=== PATIENT | female | born 1970 | race Caucasian/White ===

== ENCOUNTER 2017-06-20 16:16 | Emergency (ER) | payer BC ==
[~2017-06-20] VITALS: Ht 160 cm; Wt 104.0 kg
[~2017-06-20 16:16] MED LIST: AMOXICILLIN500 MG PO; ASPIRIN LOW DOS81 M1 PO; ASPIRIN81 MG PO; AVELOX400 MG OR; CELEXA20 MG PO; CIPROFLOXACN500 MG PO; FIORICE1 PO; FIORICET PO; FOLIC ACID1 MG OR; IMITREX50 M1 PO; KEFLEX500 M1 PO; LEXAPRO20 MG PO; LIPITOR10 MG OR; MAXALT10 MG PO; METRONIDAZOL500 MG PO; NEURONTIN300 MG PO; NO CURRENT MEDS; NO HOME MEDS; ONDANSETRON4 MG PO; PANCOF EXP OR; PERCOCET 5/325M1 TAB PO; PRAVASTATIN10 MG PO; PRENATAL1 TAB OR; ROBITUSSIN AC10 ML PO; TB MEDS; ULTRAM50 M1 PO; ULTRAM50 MG OR; ZANAFLEX2 MG PO; ZPAK OR; [UNRECOGNIZED DRUG - OTHER] OR
[2017-06-20] MEDS ORDERED: PERCOCET 5/325M1 TAB PO (16:26)
[2017-06-20 16:35] VITALS: BP 115/77
[2017-06-20] MEDS ORDERED: REQUIP XL2 MG PO (16:39)
[2017-06-20] MEDS ORDERED: VITAMIN D5000 UNIT PO (16:40)
[2017-06-20] MEDS ORDERED: PREVACID15 M1 PO (16:40)
[2017-06-20] MEDS ORDERED: NAPROSYN500 MG PO (17:11)
== END 2017-06-20 17:25 | disposition home or self-care (01) | DRG 563 ==
LOC: ED 16:16
PROC: 2W3DX1Z Immobilization of Left Lower Arm using Splint (ICD-10-PCS; principal; 2017-06-20)
DX: S63.502A Unspecified sprain of left wrist, initial encounter (principal); M25.532 Pain in left wrist; M77.9 Enthesopathy, unspecified

== ENCOUNTER 2018-12-12 17:05 | Emergency (ER) | payer OTHER ==
[~2018-12-12] VITALS: Ht 160 cm; Wt 110.0 kg
[~2018-12-12 17:05] MED LIST changes: +CELEBREX200 M1 PO; +CYMBALTA30 MG PO; +FOLIC ACID1 M1 PO; +LYRICA100 MG PO; +MULTIVITAMI9 PO; +NAPROSYN500 MG PO; +PHENTERMINE37.5 MG PO; +PREVACID15 M1 PO; +PROTONIX40 M2 PO; +REQUIP XL2 MG PO; +ROBAXIN-750750 MG PO; +ROSUVASTATIN CA40 MG PO; +VITAMIN D5000 UNIT PO
[2018-12-12 18:02] LABS: URINE BILIRUBIN - DIPSTICK NEGATIVE (NEGATIVE); URINE BLOOD DIPSTICK SMALL (NEGATIVE); URINE COLOR YELLOW; URINE GLUCOSE - DIPSTICK NEGATIVE (NEGATIVE); URINE KETONE NEGATIVE (NEGATIVE); URINE LEUK ESTERASE NEGATIVE (NEGATIVE); URINE NITRITE - DIPSTICK NEGATIVE (Negative); URINE PH 5.5 (4.5-8.0); URINE PROTEIN - DIPSTICK NEGATIVE (NEG-TRACE); URINE SPECIFIC GRAVITY >=1.030; URINE UROBILINOGEN - DIPSTICK 0.2 E.U./dL (0.2)
[2018-12-12 18:08] LABS: IMMATURE GRANULOCYTES 0.3 % (0.0-5.0); MEAN CELL VOLUME 89.9 fL CALC (80.0-100.0); MEAN CORPUSCULAR HGB 28.6 pG CALC (26.0-32.0); MEAN CORPUSCULAR HGB CONC 31.8 g/L CALC (32.0-36.0); NEUT# 6.68 thou/uL (2.00-7.15); RED BLOOD COUNT 4.93 mill/uL (4.20-5.60); RED CELL DISTRI WIDTH 13.9 % (11.5-15.5)
[2018-12-12] MEDS ORDERED: ESCITALOPRAM OX10 MG PO (18:27)
[2018-12-12 18:32] LABS: ALKALINE PHOSPHATASE 101 u/l (38-126); AMYLASE 30 u/l (30-110); ANION GAP 15 (6-22 (CALC)); BILIRUBIN, TOTAL 0.8 mg/dL (0.0-1.4); BUN 11 mg/dL (7-17); BUN/CREATININE RATIO 15 (12-20 (CALC)); CARBON DIOXIDE 26 mmol/l (22-30); CHLORIDE 106 mmol/l (95-108); CREATININE 0.7 mg/dL (0.5-1.0); GFR > 60 ML/MIN (>=60 (CALC)); GFR FOR AFR.AMER. > 60 ML/MIN (>=60 (CALC)); HEMATOCRIT 44.3 % (37.0-47.0); HEMOGLOBIN 14.1 g/dl (12.0-16.0); LIPASE 107 u/l (23-300); POTASSIUM 4.4 mmol/l (3.5-5.1); SGOT/AST 21 u/l (14-36); SODIUM 143 mmol/l (137-146)
[2018-12-12 18:36] LABS: URINE SQUAMOUS EPITHELIAL CELL FEW EPI/hpf (0-FEW)
[2018-12-12 18:37] LABS: ALBUMIN 4.2 g/dL (3.2-5.0); TOTAL PROTEIN 7.3 g/dL (6.3-8.2)
[2018-12-12] MEDS ORDERED: TAMSULOSIN0.4 MG PO (21:14)
[2018-12-12] MEDS ORDERED: LORTAB 1010 MG PO (21:14)
[2018-12-12 21:30] VITALS: BP 153/84
== END 2018-12-12 21:30 | disposition home or self-care (01) | DRG 694 ==
LOC: ED 17:05
PROVIDERS: Family Medicine
DX: N20.9 Urinary calculus, unspecified (principal); F17.200 Nicotine dependence, unspecified, uncomplicated
CPT/HCPCS: Q9967

== ENCOUNTER 2019-05-07 20:11 | Emergency (ER) | payer OTHER ==
[~2019-05-07] VITALS: Ht 160 cm; Wt 107.0 kg
[~2019-05-07 20:11] MED LIST changes: +ESCITALOPRAM OX10 MG PO; +LORTAB 1010 MG PO; +TAMSULOSIN0.4 MG PO
[2019-05-07] MEDS ORDERED: MOTRIN400 MG PO (20:21)
[2019-05-07] MEDS ORDERED: PERCOCET 5/325M1 TAB PO (20:21)
[2019-05-07 21:21] VITALS: BP 115/76
== END 2019-05-07 21:26 | disposition home or self-care (01) | DRG 552 ==
LOC: ED 20:11
DX: M54.6 Pain in thoracic spine (principal); M25.511 Pain in right shoulder; R06.02 Shortness of breath

== ENCOUNTER 2020-02-20 07:24 | Day surgery (SDC) | payer OTHER ==
[~2020-02-20 07:24] MED LIST changes: +CELEBREX100 M1 PO; +EXCEDRIN MIGRAINE PO; +HYDROCHLOROT25 MG PO; +MOTRIN400 MG PO; +SUMATRIPTAN25 MG PO; +VITAMIN D35000 UNI1 PO; +WELLBUTRIN XL150 MG PO
[2020-02-20 10:53] VITALS: BP 112/78
== END 2020-02-20 11:05 | disposition home or self-care (01) | DRG 951 ==
LOC: ENDO 07:24 → ORM 08:10 → ENDO 08:10 → ORM 08:45 → ENDO 09:30
PROVIDERS: ATTEND Surgery
PROC: 0DJD8ZZ Inspection of Lower Intestinal Tract, Via Natural or Artificial Opening Endoscopic (ICD-10-PCS; principal; 2020-02-20)
DX: Z12.11 Encounter for screening for malignant neoplasm of colon (principal); F17.210 Nicotine dependence, cigarettes, uncomplicated; Z86.010 Personal history of colon polyps; Z80.0 Family history of malignant neoplasm of digestive organs; Z11.59 Encounter for screening for other viral diseases

== ENCOUNTER 2021-09-22 09:05 | Observation (INO) | payer SELFPAY ==
[~2021-09-22] VITALS: Ht 152.4 cm; Wt 117.0 kg
[~2021-09-22 09:05] MED LIST changes: +DECADRON PO; +ZITHROMAX Z-PA250 MG PO
--- NOTE | 2021-09-22 09:10 | NUR ---
PATIENT SPO2 95% ON ROOM AIR, HEART RATE 72 AND RR 20.
--- NOTE | 2021-09-22 09:30 | NUR ---
PT ESCORTED TO ROOM 14 FOR EVALUATION OF SOB
[2021-09-22] MEDS ORDERED: ZPAK PO (09:45)
[2021-09-22] MEDS ORDERED: DEXAMETHASON0.5 MG PO (09:45)
[2021-09-22 10:53] LABS: HEMATOCRIT 44.1 % (37.0-47.0); HEMOGLOBIN 13.5 g/dl (12.0-16.0); IMMATURE GRANULOCYTES 0.3 % (0.0-5.0); MEAN CELL VOLUME 91.5 fL CALC (80.0-100.0); MEAN CORPUSCULAR HGB CONC 30.6 g/dL CAL (32.0-36.0); NEUT# 4.35 thou/uL (2.00-7.15); RED BLOOD COUNT 4.82 mill/uL (4.20-5.60); RED CELL DISTRI WIDTH 14.7 % (11.5-15.5)
[2021-09-22 11:25] LABS: ALBUMIN 3.8 g/dL (3.2-5.0); ALKALINE PHOSPHATASE 96 u/l (38-126); ANION GAP 10 (6-22 (CALC)); BILIRUBIN, TOTAL 0.5 mg/dL (0.0-1.4); BUN 12 mg/dL (7-17); BUN/CREATININE RATIO 14 (12-20 (CALC)); CARBON DIOXIDE 29 mmol/l (22-30); CHLORIDE 107 mmol/l (95-108); CREATININE 0.8 mg/dL (0.5-1.0); GFR > 60 ML/MIN (>=60 (CALC)); GFR FOR AFR.AMER. > 60 ML/MIN (>=60 (CALC)); POTASSIUM 3.8 mmol/l (3.5-5.1); SGOT/AST 31 u/l (14-36); SODIUM 142 mmol/l (137-146); TOTAL PROTEIN 7.6 g/dL (6.3-8.2)
[2021-09-22 11:37] LABS: MYOGLOBIN 65 ng/mL (0 - 62)
[2021-09-22 12:09] LABS: URINE BILIRUBIN - DIPSTICK NEGATIVE (NEGATIVE); URINE BLOOD DIPSTICK MODERATE (NEGATIVE); URINE COLOR YELLOW; URINE GLUCOSE - DIPSTICK NEGATIVE (NEGATIVE); URINE KETONE NEGATIVE (NEGATIVE); URINE LEUK ESTERASE NEGATIVE (NEGATIVE); URINE NITRITE - DIPSTICK NEGATIVE (Negative); URINE PH 5.5 (4.5-8.0); URINE PROTEIN - DIPSTICK NEGATIVE (NEG-TRACE); URINE SPECIFIC GRAVITY 1.025; URINE UROBILINOGEN - DIPSTICK 0.2 E.U./dL (0.2)
[2021-09-22 12:13] LABS: URINE SQUAMOUS EPITHELIAL CELL FEW EPI/hpf (0-FEW)
--- NOTE | 2021-09-22 15:52 | NUR ---
PATIENT EATING A CARDIAC TRAY.
--- NOTE | 2021-09-22 18:29 | NUR ---
PT ARRIVED VIA WC ACCOMAPANIED BY ED STAFF. NO DISTRESS NOTED. PT ORIENTED TO ROOM. CALL LIGHT LEFT WITHIN REACH.
--- NOTE | 2021-09-22 18:34 | NUR ---
PATIENT TAKEN TO [facility] VIA WHEELCHAIR.
[2021-09-22 19:00] VITALS: BP 122/75
--- NOTE | 2021-09-22 20:30 | NUR ---
PATIENT RESTING IN BED AT THIS TIME WITH O2 VIA NASAL CANNULA IN PLACE AT 4LPM. O2 SAT IS 94%. AWAKE ALERT AND ORIENTEDX3. PATIENT WITH NON-PRODUCTIVE COUGH. ADMITTED FOR COPD EXACERBATION. LUNGS ARE CLEAR WITH UPPER AIRWAY WHEEZE. IV SITE TO RAC-SITE IS HEALTHY AT THIS TIME. IV SITE TO RAC INTACT AND HEALTHY AT T HIS TIME. LAST BM WAS TODAY. PATIENT HAS OCC STRESS INCONT AND WEARS A PAD. APPETITE WAS FAIR FOR DINNER. ORIENTED TO ROOM AND SURROUNDINGS IN ROOM. INSTRUCTED ON USE OF NURSE CALL LIGHT SYSTEM AND TV REMOTE. SAFETY PRECAUTIONS REINFORCED. CALL LIGHT IN REACH. WILL CONT TO MONITOR.
[2021-09-22] MEDS ORDERED: PERCOCET 5/325M1 TAB PO (20:50)
--- NOTE | 2021-09-23 | NUR ---
RESTING IN BED AT THIS TIME WITH O2 VIA NASAL CANNULA IN PLACE. EYES ARE CLOSED. RESPS ARE EVEN AND UNLABORED. CALL LIGHT IN REACH. WILL CONT TO MONITOR.
[2021-09-23 04:00] VITALS: BP 123/61
--- NOTE | 2021-09-23 04:00 | NUR ---
PATIENT RESTING IN BED AT THIS TIME WITH EYES CLOSED AND O2 VIA NASAL CANNULA IN PLACE. RESPS ARE EVEN AND UNLABORED. SALINE LOCK TO RAC INTACT. CALL LIGHT IN REACH. WILL CONT TO MONITOR.
[2021-09-23 06:27] LABS: HEMATOCRIT 43.5 % (37.0-47.0); HEMOGLOBIN 13.6 g/dl (12.0-16.0); MEAN CELL VOLUME 91.2 fL CALC (80.0-100.0); MEAN CORPUSCULAR HGB 28.5 pG CALC (26.0-32.0); MEAN CORPUSCULAR HGB CONC 31.3 g/dL CAL (32.0-36.0); RED BLOOD COUNT 4.77 mill/uL (4.20-5.60); RED CELL DISTRI WIDTH 14.3 % (11.5-15.5)
[2021-09-23 06:30] LABS: BUN 12 mg/dL (7-17); BUN/CREATININE RATIO 20 (12-20 (CALC)); CARBON DIOXIDE 26 mmol/l (22-30); CHLORIDE 108 mmol/l (95-108); CREATININE 0.6 mg/dL (0.5-1.0); GFR > 60 ML/MIN (>=60 (CALC)); GFR FOR AFR.AMER. > 60 ML/MIN (>=60 (CALC)); MAGNESIUM 2.1 mg/dL (1.6-2.3); SODIUM 141 mmol/l (137-146)
[2021-09-23 06:31] LABS: ANION GAP 12 (6-22 (CALC)); POTASSIUM 4.6 mmol/l (3.5-5.1)
--- NOTE | 2021-09-23 07:30 | NUR ---
RECIEVED REPORT FROM SEDRICK WRIGHT
[2021-09-23 08:31] VITALS: BP 120/73
--- NOTE | 2021-09-23 08:31 | NUR ---
PT RESTING IN SEMI FOWLERS POSITION. PT IS A/OX3. ASSESSMENT AND VITALS COMPLETED. BP 120/73, HR 62, O2 93% ON ROOM AIR. RESPIRATIONS ARE EVEN AND UNLABORED WITH NO DISTRESS NOTED. WHEEZING NOTED UPON ASCULATION. HEART RHYTHM NORMAL. BOWEL SOUNHDS ARE ACTIVE.#20G RFA FLUSHED, SITE APPEARS HEALTHY AND PATENT. SKIN INTACT. PT COMPLAINS OF 8/10 BACK PAIN, PT TO BE MEDICATED PER EMAR. PT DENIES OF ANY PAINS OR DISCOMFORTS AT THIS TIME. ALL SAFTEY PRECAUTIONS ARE IN PLACE WITH CALL LIGHT IN REACH. WILL CONTINUE TO MONITOR.
--- NOTE | 2021-09-23 08:58 | NUR ---
DR PLAZA AND LUH,ANRP AT BEDSIDE.
--- NOTE | 2021-09-23 09:18 | NUR ---
DR PLAZA AND LUH,ANRP AT BEDSIDE
--- NOTE | 2021-09-23 09:20 | NUR ---
DR PLAZA AND LUH,ANRP AT BEDSIDE
--- NOTE | 2021-09-23 10:15 | NUR ---
DR PLAZA AND LUH,ANRP AT BEDSIDE
[2021-09-23] MEDS ORDERED: NURTEC75 MG SL (10:41)
[2021-09-23] MEDS ORDERED: PERCOCET 5/325M1 TAB PO (10:46)
[2021-09-23] MEDS ORDERED: SPIRIVA RE1.25 MCG/A INHW/SPAC (10:47)
[2021-09-23] MEDS ORDERED: ROPINIROLE5 MG PO (10:48)
[2021-09-23] MEDS ORDERED: METHOCARBAMOL750 MG PO (10:49)
[2021-09-23] MEDS ORDERED: PREDNISONE10 MG PO (11:06)
[2021-09-23] MEDS ORDERED: VENTOLIN HFA108 MCG IN (11:11)
[2021-09-23] MEDS ORDERED: IPRATROPIU0.5 MG/3 M IN (11:12)
--- NOTE | 2021-09-23 12:36 | NUR ---
PT EDUCATED ON DC INSTRUCTIONS AND NEW MEDCATIONS. PT VERBLAIZED UNDERSTANDING. IV REMOVED WITH CATH INTACT. PT REQUEST FOR MEDS TO BE SENT TO [facility]. [place] TO BE INFORMED. TRANSPORTATION TO ARRIVE
--- NOTE | 2021-09-23 12:59 | NUR ---
Discharge instructions given. Patient verbalizes understanding of same. Discharged in stable condition via Wheelchair to Home with 3staff. All belongings sent with pt. PT DC HOME IN STABLE CONDITION VIA WHEELCHAIR WITH ALL DC INSTRUCTIONS AND NEW MEDICATIONS. SCRIPTS PRINTED TO TAKE TO [facility].
== END 2021-09-23 12:59 | disposition home or self-care (01) | DRG 192 ==
LOC: ED 09:05 → ED-I 16:00 → ED 16:47 → MS2 16:48
PROVIDERS: Emergency Medicine; Nurse Practitioner; ADMIT Internal Medicine; ATTEND Internal Medicine
DX: J43.9 Emphysema, unspecified (principal); G47.33 Obstructive sleep apnea (adult) (pediatric); E78.5 Hyperlipidemia, unspecified; M06.9 Rheumatoid arthritis, unspecified; I25.10 Atherosclerotic heart disease of native coronary artery without angina pectoris; E66.01 Morbid (severe) obesity due to excess calories; Z68.33 Body mass index [BMI] 33.0-33.9, adult; G89.4 Chronic pain syndrome; Z87.891 Personal history of nicotine dependence; Z20.822 Contact with and (suspected) exposure to COVID-19
CPT/HCPCS: G0378; J1650; Q9967

== ENCOUNTER 2022-05-19 08:17 | Emergency (ER) | payer OTHER ==
[2022-05-19] VITALS (8 sets, daily range): BP systolic 109–130; BP diastolic 65–79
[~2022-05-19] VITALS: Ht 152.4 cm; Wt 112.7 kg
[~2022-05-19 08:17] MED LIST changes: +DEXAMETHASON0.5 MG PO; +IPRATROPIU0.5 MG/3 M IN; +METHOCARBAMOL750 MG PO; +NURTEC75 MG SL; +PREDNISONE10 MG PO; +ROPINIROLE5 MG PO; +SPIRIVA RE1.25 MCG/A INHW/SPAC; +VENTOLIN HFA108 MCG IN; +ZPAK PO
[2022-05-19 09:09] LABS: HEMATOCRIT 40.3 % (37.0-47.0); HEMOGLOBIN 12.9 g/dl (12.0-16.0); IMMATURE GRANULOCYTES 0.3 % (0.0-5.0); MEAN CELL VOLUME 90.2 fL CALC (80.0-100.0); MEAN CORPUSCULAR HGB 28.9 pG CALC (26.0-32.0); NEUT# 6.06 thou/uL (2.00-7.15); RED BLOOD COUNT 4.47 mill/uL (4.20-5.60); RED CELL DISTRI WIDTH 14.5 % (11.5-15.5)
[2022-05-19] MEDS ORDERED: FUROSEMIDE20 MG PO (09:11)
[2022-05-19] MEDS ORDERED: XANAX0.5 MG PO (09:12)
[2022-05-19] MEDS ORDERED: ROPINIROLE5 MG PO (09:14)
[2022-05-19 09:15] LABS: URINE BILIRUBIN - DIPSTICK NEGATIVE (NEGATIVE); URINE BLOOD DIPSTICK SMALL (NEGATIVE); URINE COLOR YELLOW; URINE GLUCOSE - DIPSTICK NEGATIVE (NEGATIVE); URINE KETONE NEGATIVE (NEGATIVE); URINE LEUK ESTERASE NEGATIVE (NEGATIVE); URINE PROTEIN - DIPSTICK NEGATIVE (NEG-TRACE); URINE UROBILINOGEN - DIPSTICK 0.2 E.U./dL (0.2)
[2022-05-19 09:16] LABS: URINE NITRITE - DIPSTICK NEGATIVE (Negative)
[2022-05-19 09:30] LABS: URINE BACTERIA FEW hpf; URINE SQUAMOUS EPITHELIAL CELL FEW EPI/hpf (0-FEW); URINE WBC 0-2 WBC/hpf (0-5)
[2022-05-19 09:57] LABS: ALBUMIN 3.9 g/dL (3.2-5.0); ALKALINE PHOSPHATASE 85 u/l (38-126); ANION GAP 10 (6-22 (CALC)); BILIRUBIN, TOTAL 0.3 mg/dL (0.0-1.4); BUN 10 mg/dL (7-17); BUN/CREATININE RATIO 16 (12-20 (CALC)); CARBON DIOXIDE 27 mmol/l (22-30); CHLORIDE 108 mmol/l (95-108); CREATININE 0.6 mg/dL (0.5-1.0); GFR FOR AFR.AMER. > 60 ML/MIN (>=60 (CALC)); GFR OTHER RACES > 60 ML/MIN (>=60 (CALC)); SGOT/AST 21 u/l (14-36); SODIUM 141 mmol/l (137-146)
[2022-05-19] MEDS ORDERED: ZPAK PO (11:55)
== END 2022-05-19 12:05 | disposition home or self-care (01) | DRG 194 ==
LOC: ED 08:17
PROVIDERS: Family Medicine
DX: J18.9 Pneumonia, unspecified organism (principal); J44.0 Chronic obstructive pulmonary disease with (acute) lower respiratory infection; I50.9 Heart failure, unspecified; E66.9 Obesity, unspecified; E78.5 Hyperlipidemia, unspecified; M06.9 Rheumatoid arthritis, unspecified; F17.210 Nicotine dependence, cigarettes, uncomplicated
CPT/HCPCS: Q9967

== ENCOUNTER 2022-10-02 14:58 | Emergency (ER) | payer OTHER ==
[~2022-10-02] VITALS: Ht 152.4 cm; Wt 101.0 kg
[~2022-10-02 14:58] MED LIST changes: +FUROSEMIDE20 MG PO; +XANAX0.5 MG PO
[2022-10-02 15:45] LABS: BASO% 0.4 % (0-3); EOS% 2.8 % (0-8); HEMATOCRIT 45.3 % (37.0-47.0); HEMOGLOBIN 14.2 g/dl (12.0-16.0); IMMATURE GRANULOCYTES 0.1 % (0.0-5.0); LYMPH% 31.8 % (15-41); MEAN CELL VOLUME 90.4 fL CALC (80.0-100.0); MEAN CORPUSCULAR HGB 28.3 pG CALC (26.0-32.0); MEAN CORPUSCULAR HGB CONC 31.3 g/dL CAL (32.0-36.0); NEUT# 6.41 thou/uL (2.00-7.15); NEUT% 58.9 % (42-76); RED BLOOD COUNT 5.01 mill/uL (4.20-5.60); RED CELL DISTRI WIDTH 14.1 % (11.5-15.5)
[2022-10-02 15:55] LABS: ALBUMIN 4.2 g/dL (3.2-5.0); ALKALINE PHOSPHATASE 89 u/l (38-126); ANION GAP 10 (6-22 (CALC)); BILIRUBIN, TOTAL 0.3 mg/dL (0.0-1.4); BUN 11 mg/dL (7-17); BUN/CREATININE RATIO 13 (12-20 (CALC)); CARBON DIOXIDE 27 mmol/l (22-30); CHLORIDE 109 mmol/l (95-108); CREATININE 0.8 mg/dL (0.5-1.0); GFR FOR AFR.AMER. > 60 ML/MIN (>=60 (CALC)); GFR OTHER RACES > 60 ML/MIN (>=60 (CALC)); LIPASE 140 u/l (23-300); POTASSIUM 4.1 mmol/l (3.5-5.1); SGOT/AST 25 u/l (14-36); SODIUM 141 mmol/l (137-146)
[2022-10-02 18:33] VITALS: BP 120/71
== END 2022-10-02 18:34 | disposition home or self-care (01) | DRG 392 ==
LOC: ED 14:58
PROVIDERS: Family Medicine
DX: R10.9 Unspecified abdominal pain (principal); R11.2 Nausea with vomiting, unspecified; F17.210 Nicotine dependence, cigarettes, uncomplicated; G47.30 Sleep apnea, unspecified; R19.7 Diarrhea, unspecified; J44.9 Chronic obstructive pulmonary disease, unspecified; I50.9 Heart failure, unspecified; Z20.822 Contact with and (suspected) exposure to COVID-19

== ENCOUNTER 2022-10-05 16:46 | Emergency (ER) | payer OTHER ==
[2022-10-05] VITALS (8 sets, daily range): BP systolic 97–120; BP diastolic 71–84
[~2022-10-05] VITALS: Ht 152.4 cm; Wt 94.0 kg
[2022-10-05 17:43] LABS: BASO% 0.2 % (0-3); EOS% 3.5 % (0-8); HEMATOCRIT 44.2 % (37.0-47.0); HEMOGLOBIN 14.4 g/dl (12.0-16.0); IMMATURE GRANULOCYTES 0.1 % (0.0-5.0); LYMPH% 23.7 % (15-41); MEAN CELL VOLUME 87.7 fL CALC (80.0-100.0); MEAN CORPUSCULAR HGB 28.6 pG CALC (26.0-32.0); MEAN CORPUSCULAR HGB CONC 32.6 g/dL CAL (32.0-36.0); MONO% 6.9 % (2-13); NEUT# 8.74 thou/uL (2.00-7.15); NEUT% 65.6 % (42-76); RED BLOOD COUNT 5.04 mill/uL (4.20-5.60); RED CELL DISTRI WIDTH 13.9 % (11.5-15.5)
[2022-10-05 17:54] LABS: ALBUMIN 4.3 g/dL (3.2-5.0); ALKALINE PHOSPHATASE 88 u/l (38-126); ANION GAP 13 (6-22 (CALC)); BILIRUBIN, TOTAL 0.4 mg/dL (0.0-1.4); BUN 11 mg/dL (7-17); BUN/CREATININE RATIO 14 (12-20 (CALC)); CHLORIDE 109 mmol/l (95-108); CREATININE 0.8 mg/dL (0.5-1.0); GFR FOR AFR.AMER. > 60 ML/MIN (>=60 (CALC)); GFR OTHER RACES > 60 ML/MIN (>=60 (CALC)); LIPASE 142 u/l (23-300); POTASSIUM 3.3 mmol/l (3.5-5.1); SGOT/AST 28 u/l (14-36); SODIUM 140 mmol/l (137-146); TOTAL PROTEIN 8.2 g/dL (6.3-8.2)
[2022-10-05 17:56] LABS: CARBON DIOXIDE 21 mmol/l (22-30)
[2022-10-05 19:06] LABS: URINE BILIRUBIN - DIPSTICK NEGATIVE (NEGATIVE); URINE BLOOD DIPSTICK TRACE-INTACT (NEGATIVE); URINE COLOR YELLOW; URINE GLUCOSE - DIPSTICK NEGATIVE (NEGATIVE); URINE KETONE TRACE mg/dL (NEGATIVE); URINE LEUK ESTERASE NEGATIVE (NEGATIVE); URINE PH 5.5 (4.5-8.0); URINE PROTEIN - DIPSTICK NEGATIVE (NEG-TRACE); URINE SPECIFIC GRAVITY >=1.030; URINE UROBILINOGEN - DIPSTICK 0.2 E.U./dL (0.2)
[2022-10-05 19:11] LABS: URINE NITRITE - DIPSTICK NEGATIVE (Negative)
[2022-10-05] MEDS ORDERED: CIPROFLOXACN500 MG PO (20:46)
== END 2022-10-05 21:00 | disposition home or self-care (01) | DRG 373 ==
LOC: ED 16:46
PROVIDERS: Nurse Practitioner
DX: A04.4 Other intestinal Escherichia coli infections (principal); E66.01 Morbid (severe) obesity due to excess calories; E78.5 Hyperlipidemia, unspecified; J44.9 Chronic obstructive pulmonary disease, unspecified; I50.9 Heart failure, unspecified; F17.200 Nicotine dependence, unspecified, uncomplicated
CPT/HCPCS: Q9967

== ENCOUNTER 2022-11-21 13:04 | Observation (INO) | payer OTHER ==
[~2022-11-21] VITALS: Ht 152.4 cm; Wt 98.0 kg
[2022-11-21] VITALS (16 sets, daily range): BP systolic 94–125; BP diastolic 53–77
[2022-11-21 13:32] LABS: BASO% 0.3 % (0-3); EOS% 2.6 % (0-8); HEMATOCRIT 41.7 % (37.0-47.0); HEMOGLOBIN 12.8 g/dl (12.0-16.0); IMMATURE GRANULOCYTES 0.1 % (0.0-5.0); LYMPH% 42.3 % (15-41); MEAN CELL VOLUME 89.9 fL CALC (80.0-100.0); MEAN CORPUSCULAR HGB 27.6 pG CALC (26.0-32.0); MEAN CORPUSCULAR HGB CONC 30.7 g/dL CAL (32.0-36.0); MONO% 6.2 % (2-13); NEUT# 4.6 thou/uL (2.00-7.15); NEUT% 48.5 % (42-76); RED BLOOD COUNT 4.64 mill/uL (4.20-5.60); RED CELL DISTRI WIDTH 14.3 % (11.5-15.5)
[2022-11-21 13:56] LABS: ALKALINE PHOSPHATASE 79 u/l (38-126); ANION GAP 12 (6-22 (CALC)); BILIRUBIN, TOTAL 0.3 mg/dL (0.02-1.3); BUN 9 mg/dL (7-17); BUN/CREATININE RATIO 11 (12-20 (CALC)); CHLORIDE 107 mmol/l (95-108); CREATININE 0.8 mg/dL (0.5-1.0); GFR FOR AFR.AMER. > 60 ML/MIN (>=60 (CALC)); GFR OTHER RACES > 60 ML/MIN (>=60 (CALC)); POTASSIUM 3.7 mmol/l (3.5-5.1); SGOT/AST 24 u/l (14-36); SODIUM 141 mmol/l (137-146); TOTAL PROTEIN 7.6 g/dL (6.3-8.2)
[2022-11-21 13:57] LABS: CARBON DIOXIDE 26 mmol/l (22-30)
[2022-11-21] MEDS ORDERED: FOLIC ACID1 MG PO (15:38)
[2022-11-21] MEDS ORDERED: MOUNJARO7.5 MG SC (15:39)
[2022-11-21] MEDS ORDERED: ROPINIROLE2 MG PO (23:32)
[2022-11-22 03:06] VITALS: BP 101/59
[2022-11-22 04:42] LABS: CHOLESTEROL HDL RATIO 6.6 (<4.4 (CALC))
[2022-11-22 05:23] VITALS: BP 103/57
[2022-11-22 09:24] VITALS: BP 97/58
[2022-11-22] MEDS ORDERED: ISOSORB MONO30 MG PO (09:59)
== END 2022-11-22 10:55 | disposition home or self-care (01) | DRG 313 ==
LOC: ED 13:04 → ED-I 14:20 → ED 14:42 → MS2 14:43
PROVIDERS: Family Medicine; ADMIT Internal Medicine; ATTEND Internal Medicine
DX: R07.9 Chest pain, unspecified (principal); I25.10 Atherosclerotic heart disease of native coronary artery without angina pectoris; I50.9 Heart failure, unspecified; J44.9 Chronic obstructive pulmonary disease, unspecified; E78.5 Hyperlipidemia, unspecified; E66.01 Morbid (severe) obesity due to excess calories; M06.9 Rheumatoid arthritis, unspecified; G89.4 Chronic pain syndrome; F17.210 Nicotine dependence, cigarettes, uncomplicated
CPT/HCPCS: G0378; J1650

== ENCOUNTER 2023-10-04 17:50 | Emergency (ER) | payer OTHER ==
[2023-10-04] VITALS (9 sets, daily range): BP systolic 99–130; BP diastolic 53–80
[~2023-10-04] VITALS: Ht 152.4 cm; Wt 95.2 kg
[~2023-10-04 17:50] MED LIST changes: +DICYCLOMINE HYD10 MG PO; +FOLIC ACID1 MG PO; +ISOSORB MONO30 MG PO; +LEVSIN/SL0.125 MG SL; +MOUNJARO7.5 MG SC; +ROPINIROLE2 MG PO; +ZOFRAN4 MG/TAB PO
[2023-10-04] MEDS ORDERED: NAPROXEN500 MG PO (19:29)
== END 2023-10-04 19:48 | disposition home or self-care (01) | DRG 563 ==
LOC: ED 17:50
DX: S93.401A Sprain of unspecified ligament of right ankle, initial encounter (principal); I50.9 Heart failure, unspecified; J44.9 Chronic obstructive pulmonary disease, unspecified; F17.200 Nicotine dependence, unspecified, uncomplicated; X50.0XXA Overexertion from strenuous movement or load, initial encounter; Y93.89 Activity, other specified; Y92.007 Garden or yard of unspecified non-institutional (private) residence as the place of occurrence of the external cause

== ENCOUNTER 2024-05-23 20:15 | Emergency (ER) | payer OTHER ==
[~2024-05-23] VITALS: Ht 152.4 cm; Wt 100.0 kg
[~2024-05-23 20:15] MED LIST changes: +NAPROXEN500 MG PO
[2024-05-23] MEDS ORDERED: IPRATROPIUM-Albuterol 0.5MG-2.5MG/3 ML NEB ONE (20:55)
[2024-05-23] MEDS ORDERED: predniSONE 20 MG/TAB PO ONE (20:55)
[2024-05-23 21:23] LABS: BASO% 0.5 % (0-3); EOS% 2.3 % (0-8); HEMATOCRIT 43.5 % (37.0-47.0); HEMOGLOBIN 13.9 g/dl (12.0-16.0); IMMATURE GRANULOCYTES 0.1 % (0.0-5.0); MEAN CELL VOLUME 92.6 fL CALC (80.0-100.0); MEAN CORPUSCULAR HGB 29.6 pG CALC (26.0-32.0); MONO% 5.6 % (2-13); NEUT# 4.91 thou/uL (2.00-7.15); NEUT% 50.5 % (42-76); RED BLOOD COUNT 4.7 mill/uL (4.20-5.60); RED CELL DISTRI WIDTH 13.2 % (11.5-15.5)
[2024-05-23] MEDS ORDERED: DOXYCYCLINE HYCLATE 100 MG/CAP PO ONE (22:40)
[2024-05-23] MEDS ORDERED: VIBRAMYCIN100 M2 PO (22:40)
[2024-05-23 23:02] VITALS: BP 133/84
== END 2024-05-23 23:02 | disposition home or self-care (01) | DRG 192 ==
LOC: ED 20:15
PROVIDERS: Family Medicine
DX: J44.1 Chronic obstructive pulmonary disease with (acute) exacerbation (principal); I50.9 Heart failure, unspecified; K21.9 Gastro-esophageal reflux disease without esophagitis; F17.200 Nicotine dependence, unspecified, uncomplicated; Z20.822 Contact with and (suspected) exposure to COVID-19

== ENCOUNTER 2024-06-01 08:00 | Emergency (ER) | payer OTHER ==
[2024-06-01] VITALS (7 sets, daily range): BP systolic 91–131; BP diastolic 54–76
[~2024-06-01] VITALS: Ht 152.4 cm; Wt 99.0 kg
[~2024-06-01 08:00] MED LIST changes: +VIBRAMYCIN100 M2 PO
[2024-06-01] MEDS ORDERED: KETOROLAC TROMETHAMINE 30 MG/ML SDV IV ONE (08:30)
[2024-06-01] MEDS ORDERED: ONDANSETRON HCl 4 MG/2 ML SDV IV ONE (08:30)
[2024-06-01] MEDS ORDERED: MORPHINE SULFATE 4 MG/ML VIAL IV ONE (08:30)
[2024-06-01] MEDS ORDERED: METHOCARBAMOL 1,000 MG/10 ML VIAL IV ONE (08:35)
[2024-06-01 09:02] LABS: BASO% 0.4 % (0-3); EOS% 1.2 % (0-8); HEMATOCRIT 41.7 % (37.0-47.0); HEMOGLOBIN 13.4 g/dl (12.0-16.0); IMMATURE GRANULOCYTES 0.2 % (0.0-5.0); MEAN CELL VOLUME 92.3 fL CALC (80.0-100.0); MEAN CORPUSCULAR HGB 29.6 pG CALC (26.0-32.0); MEAN CORPUSCULAR HGB CONC 32.1 g/dL CAL (32.0-36.0); NEUT# 9.87 thou/uL (2.00-7.15); NEUT% 71.2 % (42-76); RED BLOOD COUNT 4.52 mill/uL (4.20-5.60); RED CELL DISTRI WIDTH 13.3 % (11.5-15.5)
[2024-06-01 09:18] LABS: ALBUMIN 3.5 g/dL (3.2-5.0); BILIRUBIN, TOTAL 0.7 mg/dL (0.02-1.3); CREATININE 0.7 mg/dL (0.5-1.0); POTASSIUM 4.1 mmol/l (3.5-5.1); TOTAL PROTEIN 6.4 g/dL (6.3-8.2)
[2024-06-01] MEDS ORDERED: IBUPROFEN600 MG PO (10:33)
[2024-06-01] MEDS ORDERED: FLEXERIL5 M1 PO (10:33)
== END 2024-06-01 10:57 | disposition home or self-care (01) | DRG 552 ==
LOC: ED 08:00
PROVIDERS: Family Medicine
DX: M54.50 Low back pain, unspecified (principal); J44.9 Chronic obstructive pulmonary disease, unspecified; I50.9 Heart failure, unspecified; K21.9 Gastro-esophageal reflux disease without esophagitis; F17.200 Nicotine dependence, unspecified, uncomplicated

== ENCOUNTER 2024-06-03 08:51 | Emergency (ER) | payer OTHER ==
[2024-06-03] VITALS (9 sets, daily range): BP systolic 102–128; BP diastolic 55–93
[~2024-06-03] VITALS: Ht 152.4 cm; Wt 97.5 kg
[~2024-06-03 08:51] MED LIST changes: +FLEXERIL5 M1 PO; +IBUPROFEN600 MG PO
[2024-06-03] MEDS ORDERED: IPRATROPIUM-Albuterol 0.5MG-2.5MG/3 ML NEB ONE (09:25)
[2024-06-03] MEDS ORDERED: ONDANSETRON HCl 4 MG/2 ML SDV IV ONE (09:25)
[2024-06-03] MEDS ORDERED: ALBUTEROL SULFATE 2.5 MG VIAL IN ONE (09:25)
[2024-06-03] MEDS ORDERED: SODIUM CHLORIDE 0.9% 1,000 ML IV ONE (09:25)
[2024-06-03 09:43] LABS: BASO% 0.3 % (0-3); EOS% 0.5 % (0-8); HEMOGLOBIN 13.5 g/dl (12.0-16.0); IMMATURE GRANULOCYTES 0.3 % (0.0-5.0); LYMPH% 23.8 % (15-41); MEAN CELL VOLUME 91.9 fL CALC (80.0-100.0); MEAN CORPUSCULAR HGB 29.5 pG CALC (26.0-32.0); MEAN CORPUSCULAR HGB CONC 32.1 g/dL CAL (32.0-36.0); MONO% 6.3 % (2-13); NEUT# 8.48 thou/uL (2.00-7.15); NEUT% 68.8 % (42-76); RED BLOOD COUNT 4.57 mill/uL (4.20-5.60); RED CELL DISTRI WIDTH 13.1 % (11.5-15.5)
[2024-06-03 10:10] LABS: ALBUMIN 3.9 g/dL (3.2-5.0); BILIRUBIN, TOTAL 0.9 mg/dL (0.02-1.3); CREATININE 0.7 mg/dL (0.5-1.0); POTASSIUM 3.9 mmol/l (3.5-5.1); TOTAL PROTEIN 7.2 g/dL (6.3-8.2)
[2024-06-03] MEDS ORDERED: PROMETHAZINE HY25 M1 PO (11:07)
[2024-06-03] MEDS ORDERED: OMEPRAZOLE DR40 MG PO (11:08)
== END 2024-06-03 11:23 | disposition home or self-care (01) | DRG 392 ==
LOC: ED 08:51
PROVIDERS: Family Medicine
DX: K52.9 Noninfective gastroenteritis and colitis, unspecified (principal); J44.1 Chronic obstructive pulmonary disease with (acute) exacerbation; I50.9 Heart failure, unspecified; K21.9 Gastro-esophageal reflux disease without esophagitis; F17.200 Nicotine dependence, unspecified, uncomplicated; Z20.822 Contact with and (suspected) exposure to COVID-19

== ENCOUNTER 2024-11-19 18:27 | Emergency (ER) | payer OTHER ==
[~2024-11-19] VITALS: Ht 152.4 cm; Wt 105.0 kg
[2024-11-19] VITALS (7 sets, daily range): BP systolic 111–138; BP diastolic 56–78
[~2024-11-19 18:27] MED LIST changes: +OMEPRAZOLE DR40 MG PO; +PROMETHAZINE HY25 M1 PO
[2024-11-19] MEDS ORDERED: IPRATROPIUM-Albuterol 0.5MG-2.5MG/3 ML NEB ONE (18:50)
[2024-11-19] MEDS ORDERED: methylPREDNISolone SODIUM SUCC 125 MG/2 ML SDV IM ONE (18:50)
[2024-11-19] MEDS ORDERED: MEDDOSEPAK PO (19:54)
[2024-11-19] MEDS ORDERED: ZPAK PO (19:54)
== END 2024-11-19 20:12 | disposition home or self-care (01) | DRG 153 ==
LOC: ED 18:27
DX: J06.9 Acute upper respiratory infection, unspecified (principal); J44.9 Chronic obstructive pulmonary disease, unspecified; I50.9 Heart failure, unspecified; F17.200 Nicotine dependence, unspecified, uncomplicated; Z20.822 Contact with and (suspected) exposure to COVID-19